=== PATIENT | female | born 1985 ===

== ENCOUNTER 2024-12-27 06:00 | Day surgery (SDC) | payer OTHER ==
[2024-12-21 11:15] VITALS: BP 108/71
[~2024-12-27] VITALS: Ht 157.5 cm; Wt 57.2 kg
[2024-12-27] MEDS ORDERED: CEFOXITIN SODIUM 2,000 MG VIAL IV ONE (12:30)
[2024-12-27] MEDS ORDERED: MORPHINE SULFATE 4 MG/ML VIAL IV PRN (12:30)
[2024-12-27] MEDS ORDERED: POVIDONE-IODINE 118 ML BOTT TOP ONE (12:30)
[2024-12-27] MEDS ORDERED: PROMETHAZINE HCL 50 MG/ML AMPUL IM ONE (12:30)
[2024-12-27] MEDS ORDERED: Tylenol #3 PO (12:38)
[2024-12-27] MEDS ORDERED: NAPR500T14 PO (12:38)
[2024-12-27] MEDS ORDERED: MORPHINE SULFATE 4 MG/ML VIAL IV ONE (13:15)
[2024-12-27] MEDS ORDERED: PROMETHAZINE HCL 50 MG/ML AMPUL IV ONE (13:15)
== END 2024-12-27 15:30 | disposition home or self-care (01) ==
LOC: CIR.AMB 06:00
PROVIDERS: ATTEND Obstetrics & Gynecology
DX: Z30.2 Encounter for sterilization (principal); Z88.1 Allergy status to other antibiotic agents; Z91.040 Latex allergy status